=== PATIENT | male | born 1960 | race Caucasian/White ===

== ENCOUNTER → 2017-03-15 | Outpatient (CLI) | payer BC ==
[~2017-03-15] MED LIST: ALBUAER2 INH; ASMIN/60 INH; ASPEC81 PO; ASPI81TA28 PO; CRS10 PO; METO25TA3 PO; NTRGSL/4 UT; OMEP40CA PO; PLV75 PO; RANI300T2 PO; SUMA100T16 PO
--- NOTE | 2017-03-15 11:57 | DIAGNOSTIC IMAGING REPORT ---
LEFT KNEE 3 VIEWS HISTORY: M25.562 Left knee [id number] COMPARISON: None. FINDINGS: There is no fracture or dislocation. Soft tissues are unremarkable. No radiopaque foreign bodies. No knee effusion. Cartilage spaces are maintained for age. IMPRESSION: No fractures. Electronically signed by: Iam Morse M.D. 03/15/2017 11:55 AM Dictated Date/Time: 03/15/2017 11:55 AM
== END | disposition home or self-care (01) ==
LOC: C.RAD1850 11:37
PROVIDERS: ATTEND Physician Assistant
DX: M25.562 Pain in left knee (principal)

== ENCOUNTER → 2017-03-31 | Outpatient (CLI) | payer BC ==
--- NOTE | 2017-03-31 14:46 | EXERCISE STRESS ECHO ---
*NOTICE TO RECEIVING LIBERTARIAN AGENCY This information is strictly Confidential and protected under [place] law. [place] law prohibits you from making any further disclosure of this information unless further disclosure is expressly permitted by the written consent of the person to whom it pertains or is authorized by law. A general authorization for the release of medical or other information is not sufficient for this purpose. Hospital accepts no responsibility if the information is made available to any other person, INCLUDING THE PATIENT. Interpretation Summary * Name: PRIYA SIEGEL Study Date: 03/31/2017 07:06 AM BP: 149/89 mmHg * Patient Location: [facility] HR: 56 * : 1960 (M/d/yyyy) Gender: Male Height: 73 in * Age: 57 yrs Ethnicity: CA Weight: 215 lb * Ordering Physician: Georgia Sol * Referring Physician: Georgia Sol PA-C * Performed By: Moon Viera RDCS * * Reason For Study: CAD IN SQUAXIN ARTERY, HX OF CATH STENT CIRCUMFLEX * BSA: 2.2 m2 * -- Conclusions -- * 1. Negative exercise stress echo for ischemia at 90% MPHR. * 2. Negative stress ECG for ischemia. * 3. Excellent functional capacity. Exercised 10:31 min, acheiving 12.5 METS. No exercise induced chest pain. * 4. Normal resting LV size and function. LVEF 55-60%. Normal RV size and function. No significant valvular pathology. * 5. No prior studies for comparison. Procedure Details * ECHOEX, CPT #65788 Left Ventricular Findings with Stress * This was essentially a normal study. Left Ventricle * The left ventricle is grossly normal size. * There is mild concentric left ventricular hypertrophy. * Ejection Fraction = 55-60%. * The left ventricular ejection fraction increases normally with stress. The left ventricular end-systolic cavity size reduces post-stress (normal response). The left ventricular wall motion with stress is normal. Right Ventricle * The right ventricle is grossly normal size. * The right ventricular systolic function is normal as assessed by tricuspid annular plane systolic excursion (TAPSE) (normal >1.5 cm). Atria * The left atrial size is normal. * Right atrial size is normal. * No ASD detected; PFO is not assessed. Mitral Valve * The mitral valve is grossly normal. * Mitral stenosis is absent. * There is trace mitral regurgitation. Tricuspid Valve * There is trace tricuspid regurgitation. Aortic Valve * The aortic valve opens well. * The aortic valve is trileaflet. * No hemodynamically significant valvular aortic stenosis. * There is no significant aortic regurgitation. Pulmonic Valve * The pulmonary valve is inadequately visualized, but the Doppler data is adequate for interpretation. * Trace pulmonic valvular regurgitation. Great Vessels * The aortic root and proximal ascending aorta are normal sized. Pericardium * There is no pericardial effusion. Stress Parameters * Normal sinus rhythm with nonspecific intraventricular condution delay. * Stress ECG: No ST changes. No arrhythmias. * rare PVCs in recovery * The stress portion of this study was personally supervised by the undersigned interpreting physician. * Rest heart rate was '56' BPM. * Rest blood pressure was '149/89' * Maximum heart rate achieved was 146 bpm. * Maximum heart rate was 90 % of maximum age-predicted heart rate. * Maximum blood pressure was '196/71' * Total exercise time was '10:31' * Maximum exercise MET level achieved was '12.50' METS * Maximum treadmill speed was '4.20' miles per hour. * Maximum treadmill elevation was '16.00'% grade. * Exercise was terminated due to 'ACHIEVING TARGET HR' Left Ventricular Findings with Stress * The study was technically good with many images being of high quality. MMode 2D Measurements and Calculations IVSd 1.3 cm IVSs 1.8 cm LVIDd 4.5 cm LVIDs 3.2 cm LVPWd 1.2 cm LVPWs 1.9 cm IVS/LVPW 1.1 FS 27.9 % EDV(Teich) 92.1 ml ESV(Teich) 42.2 ml EF(Teich) 54.1 % EDV(cubed) 90.7 ml ESV(cubed) 34.0 ml EF(cubed) 62.5 % % IVS thick 39.8 % % LVPW thick 55.3 % LV mass(C)d 211.6 grams LV mass(C)dI 95.4 grams/m\S\2 LV mass(C)s 251.3 grams LV mass(C)sI 113.3 grams/m\S\2 SV(Teich) 49.9 ml SI(Teich) 22.5 ml/m\S\2 SV(cubed) 56.7 ml SI(cubed) 25.5 ml/m\S\2 Ao root diam 3.8 cm Ao root area 11.2 cm\S\2 LA dimension 3.5 cm LA/Ao 0.92 LVAd ap4 37.1 cm\S\2 LVLd ap4 8.9 cm EDV(MOD-sp4) 126.0 ml EDV(sp4-el) 131.3 ml LVAs ap4 23.2 cm\S\2 LVLs ap4 7.7 cm ESV(MOD-sp4) 59.5 ml ESV(sp4-el) 58.9 ml EF(MOD-sp4) 52.8 % EF(sp4-el) 55.1 % LVAd ap2 35.1 cm\S\2 LVLd ap2 9.2 cm EDV(MOD-sp2) 115.0 ml EDV(sp2-el) 113.3 ml LVAs ap2 21.8 cm\S\2 LVLs ap2 7.6 cm ESV(MOD-sp2) 54.6 ml ESV(sp2-el) 53.3 ml EF(MOD-sp2) 52.5 % EF(sp2-el) 52.9 % LVLd %diff 3.1 % EDV(MOD-bp) 119.5 ml LVLs %diff -1.95 % ESV(MOD-bp) 57.4 ml EF(MOD-bp) 51.9 % SV(MOD-sp4) 66.5 ml SI(MOD-sp4) 30.0 ml/m\S\2 SV(MOD-sp2) 60.4 ml SI(MOD-sp2) 27.2 ml/m\S\2 SV(MOD-bp) 62.1 ml SI(MOD-bp) 28.0 ml/m\S\2 SV(sp4-el) 72.4 ml SI(sp4-el) 32.6 ml/m\S\2 SV(sp2-el) 60.0 ml SI(sp2-el) 27.0 ml/m\S\2 Doppler Measurements and Calculations MV E max lori 50.6 cm/sec MV A max lori 38.8 cm/sec MV E/A 1.3 MV dec time 0.27 sec Ao V2 max 98.5 cm/sec Ao max PG 3.9 mmHg Ao max PG (full) 1.1 mmHg LV V1 max PG 2.8 mmHg LV V1 max 83.3 cm/sec TR max lori 199.5 cm/sec
== END | disposition home or self-care (01) ==
LOC: C.CPL 07:01
PROVIDERS: ATTEND Physician Assistant
DX: I25.10 Atherosclerotic heart disease of native coronary artery without angina pectoris (principal)

== ENCOUNTER → 2017-05-28 | Day surgery (SDC) | payer BC ==
--- NOTE | 2017-05-27 10:06 | History and Physical ---
"History & Physical Date of Service May 26, 2017. 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 His cardiac history dates back to November,. Around that time he had an episode of chest pressure that radiated to his jaw that will come up from sleeping. He was seen by Dr. Gray of [place] interventional cardiology and diagnostic cardiac catheterization performed at [facility] on 12/03/2015 revealed a culprit 80% focal stenosis of the mid circumflex coronary artery and an intermediate stenosis of the mid LAD graded as being 30 to 50% just after the takeoff of a moderate sized diagonal. The patient returned to the medical lab technician the next day and underwent FFR evaluation the intermediate LAD lesion with results of 0.95 and was felt that the LAD stenosis was not hemodynamically significant and he went on to have PCI, drug-eluting stent placement of mid circumflex coronary artery with implantation of a 2.75 x 14 mm Resolute TAMMY. He had interval resolution of his anginal chest discomfort. In preparation for a backpacking trip the patient underwent an exercise stress echocardiogram at [facility] on 03/31/2017. The report describes normal resting wall motion with an ejection fraction of 55 to 60%. No significant valvular heart disease was noted on the resting study. He exercised to a high work level achieving 10 minutes and 31 seconds on a Andrei protocol, 12.5 METs with no symptoms suggestive of angina. In early April, a went on to participate in the backpacking trip and hiked 10 miles a day for 2 days on hilly terrain with an appropriate level of shortness of breath and only having to stop due to leg fatigue but no chest discomfort. Last week he had been scuba diving completing 6 ties in the [employer]. He notes however that he has recently developed a chest discomfort that is high in his chest and seems to occur at rest. He does not noted with physical exertion and feels like a dull achiness that last for a few minutes and then goes away on its own. He believes this is been occurring for the last 1 to 2 months. He had 2 episodes while he was on vacation last week but did not note the symptoms with his scuba diving endeavors. His blood pressure is above goal today at 160/100. His spouse who was a nurse by training takes his blood pressure at home and typically his systolic blood pressure is well controlled in the 130 millimeter of Hg Range. He notes that he has a past history of sensitivity to medications. He had previously been prescribed lisinopril but this was discontinued due to cough. He then had been prescribed losartan and he felt that he also had a cough with that medication. He has previously been treated with both simvastatin and atorvastatin and both of these discontinued due to significant myalgias complaints. Review of Systems: A Complete Review of 10 Systems is as stated above or negative. Past Medical History: Patient Active Problem List Diagnosis Code Esophageal reflux K21.9 Migraine without aura G43.009 Past Surgical History: Procedure Laterality Date BIOPSY OF PROSTATE 2002 COLORECTAL CANCER SCREEN; NOT AT RISK 10/27/11 wnl repeat colonoscopy 10 years GINGIVOPLASTY, EACH QUADRANT Family History: Family History Problem Relation Age of Onset Cancer Father 54 prostate Hypertension Father Heart Disorder Father 52 Heart Disorder Paternal Grandfather 52 Hypertension Mother The patient 's grandfather at age 52 of a presumed myocardial infarction. Patient 's father had a myocardial infarction age 54 and subsequently of metastatic prostate cancer at age 59. Social History: Social History Social History Marital status: Spouse name: Jessica Number of children: 4 Occupational History [employer] Social History Main Topics Smoking status: Never Smoker Smokeless tobacco: Never Used Alcohol use Yes Comment: rare Drug use: No Sexual activity: Yes Partners: Female Allergies: Review of patient's allergies indicates no known allergies. Medications: Outpatient Medications Instructions: clopidogrel (PLAVIX) 75 MG Tablet metoprolol succinate XL (TOPROL XL) 25 MG TB24 Take 25 mg by mouth daily. nitroglycerin (NITROSTAT) 0.4 MG SUBL RaNITidine HCl 300 MG Tablet Take 300 mg by mouth at bedtime. IMITREX 100 MG PO TABS as needed for migraine OBJECTIVE/PHYSICAL EXAMINATION: BP 160/100 | Pulse 58 | Resp 16 | Wt 216 lbs (97.977kg) | BMI 28.5 kg/m | BSA 2.25 m General: no acute distress and stated age Eyes: conjunctiva are pink and non-injected, sclera clear Neck: normal jugular venous pulse, no hepatojugular reflux Chest: normal shape and normal respiratory effort Lungs: clear to auscultation and percussion Cardiac Exam: - regular heart sounds, no murmurs, rubs, or gallops Abdomen: abdomen soft, non-tender, no abnormal masses and no hepatosplenomegaly Musculoskeletal: no gait disturbance, no weakness Extremities: no edema and no cyanosis Neuro: grossly normal exam Psych: appropriate affect and insight. Data: An EKG performed today 05/26/2017 reviewed independently by the undersigned: Sinus bradycardia 52 beats per minute voltage criteria for left ventricular hypertrophy, an age undetermined septal infarction cannot be excluded. Compared to the post coronary stent tracing performed on 12/04/2015 at [facility], there are persistent inferior T-wave inversions in the leads III and AVF. The age undetermined septal infarction is new, with new poor R-wave progression in lead V2. 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 Range 05/26/2017 10:25 WBC Latest Ref Range: 4.00 - 10.80 K/uL 6.90 RBC Latest Ref Range: 4.50 - 5.25 M/uL 4.90 HGB Latest Ref Range: 14.0 - 16.8 g/dL 15.0 HCT Latest Ref Range: 40.0 - 48.4 % 43.9 PLATELET COUNT Latest Ref Range: 140 - 400 K/uL 219 PT/INR-PT Latest Ref Range: 11.5 - 14.6 seconds 13.3 PT/INR-INR Latest Ref Range: 0.82 - 1.12 0.99 APTT-PATIENT Latest Ref Range: 21 - 38 seconds 25 BUN Latest Ref Range: 6 - 20 mg/dL 18 CREATININE Latest Ref Range: 0.6 - 1.2 mg/dL 1.3 (H) E GLOM FILT RATE Latest Ref Range: >60 >60.0 SODIUM Latest Ref Range: 135 - 146 mmol/L 142 POTASSIUM Latest Ref Range: 3.5 - 5.1 mmol/L 4.3 CHLORIDE Latest Ref Range: 98 - 107 mmol/L 104 CO2 Latest Ref Range: 22 - 32 mmol/L 25 GLUCOSE Latest Ref Range: 70 - 120 mg/dL 102 CALCIUM Latest Ref Range: 8.4 - 10.2 mg/dL 9.5 ANION GAP Latest Ref Range: 7 - 15 mmol/L 13 ALBUMIN Latest Ref Range: 3.8 - 5.0 g/dL 4.4 ALKALINE PHOSPHATASE Latest Ref Range: 0 - 153 U/L 60 ALT Latest Ref Range: 10 - 50 U/L 21 AST Latest Ref Range: 10 - 50 U/L 20 BILIRUBIN Latest Ref Range: 0 - 1.2 mg/dL 0.6 PROTEIN Latest Ref Range: 6.0 - 8.3 g/dL 7.1 AP/PA Lateral Chest X-ray 05/26/17 FINDINGS Cardiomediastinal silhouette and pulmonary vasculature are within normal limits. There is no focal airspace consolidation, pleural effusion or pneumothorax. Multilevel degenerative changes of the thoracic spine. IMPRESSION No acute cardiopulmonary process identified on this chest radiograph. IMPRESSION: 57 year old year old male 1. Unstable Angina 2. Abnormal EKG 3. Hypertension, BP above goal 4. Dyslipidemia, with past statin intolerance RECOMMENDATIONS/PLAN: The patient expresses significant concern about the chest discomfort. He states that it is not definitely reminiscent of the discomfort that prompted his initial cardiac catheterization in November,, but is difficult to determine an alternative cause. 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 He had a stress test in March, prior to proceeding with a significant exertional and ever of the backpacking trip with no symptoms or objective evidence of ischemia induced, however the symptoms have, but since then. He has very subtle change in his EKG , but is difficult to tell if this is clinically relevant. His blood pressure is above goal today, however he is in a new place having not been to our office before. We discussed potential options. Do not think repeating a stress test will be of much value at the present time as even if it was negative, I would still be concerned about his discomfort especially because of how much she exerts himself performing activities such as splitting wood, hiking, and performing scuba diving especially given his known circumflex stent and intermediate LAD lesion noted on last cardiac catheterization. At this time, I recommend that we proceed with coronary angiography for definitive diagnosis with repeat FFR measurement of any lesions if necessary. The patient would like to have this performed locally at [facility], have discussed the case with Dr. Hull of [facility] interventional cardiology by telephone and will schedule the procedure with Dr Hull later this week on . Pre procedure labs and CXR will be completed today. His blood pressure is above goal today, but he states that is otherwise usually better controlled and he notes difficulty with tolerating lisinopril on losartan in the past. Future considerations include perhaps adding low-dose amlodipine for blood pressure control and his anti anginal medication. He has been intolerant of statin therapy with trials of simvastatin and atorvastatin in the past. He notes that his total cholesterol typically runs in the 220 to 230 milligram/deciliter range as obvious late above goal for someone with known coronary heart disease. I have counseled him to start rosuvastatin 5 milligrams by mouth starting with 1 tablet once per week and then increasing to 3 times per week on Wednesdays and Fridays and then daily as tolerated. He has been on Imitrex in the past. This will be revisited future appointment, as this is not an ideal headache medication for patient with hypertension and coronary artery disease. Pre cardiac catheterization laboratory findings were within normal limits with the exception of a mildly elevated creatinine of 1.3 milligrams/deciliter, with normal calculated GFR. The patient has been counseled to hydrate with oral fluids leading up to his cardiac catheterization. Rafa Hoover DO [facility], [address] [address] This chart was completed in part utilizing [employer] Speech Voice Recognition Software. Grammatical errors, random word insertions, prounoun errors, and incomplete sentences are an occasional consequence of this system due to software limitations, ambient noise, and hardware issues. Any formal questions or concerns about the content, text, or information contained within the body of this dictation should be directly addressed to the provider for clarification."
[~2017-05-28] VITALS: Ht 185.4 cm; Wt 98.0 kg
[~2017-05-28] MED LIST changes: +ADENOSINE IV SOLN 3 MG/ML 20 ML VIAL ONE; +FENTANYL CITRATE INJ 50 MCG/1 ML 2 ML VIAL ONE; +HEPARIN SOD (PORCINE) 1000 UNIT/ML 10 ML VIAL ONE; +MIDAZOLAM HCL 1 MG/ML 2ML VIAL ONE; +NITROGLYCERIN/D5W 100MCG/ML 20ML SYR ONE; +NiCARDipine HCL INJ 2.5 MG/ML 10 ML AMP ONE
[2017-05-28 09:09] VITALS: BP 160/81; PULSE 60; TEMP 36.5; O2SAT 98; Ht 185.4 cm; Wt 98.0 kg
--- NOTE | 2017-05-28 09:57 | History & Physical Bridge Note ---
H&P Re-Evaluation Bridge Note: I have examined the patient, reviewed the History & Physical and in the interval since the performance of the History & Physical I have noted the following changes of clinical significance: No changes noted
--- NOTE | 2017-05-28 09:57 | Procedure Note ---
Pre-Mod Sedation Assessment General Date of Moderate Sedation: May 28, 2017. Vital Signs: Vital Signs Past 12 Hours Date Time Temp Pulse Resp B/P (MAP) Pulse Ox O2 Delivery O2 Flow Rate FiO2 05/28/17 09:09 36.5 60 18 160/81 98 Room Air Review Cardiovascular: regular rate, rhythm, no edema Abdomen: normal bowel sounds, non tender Lungs: chest non-tender, lungs clear Pre-Sedation Airway Assessment Oral Cavity: WNL Able to Visualize Vocal Cords: No Short Thick Neck: No Hx of Sleep Apnea: No Smoking Status: Never Smoker Mallampati Classification: Class III ASA Classification: Class III Procedure Planning Contraindications-for Mod Sed: None Yes Notes The planned sedation has been discussed with the patient and consent obtained. I have identified the patient, determined the appropriateness of sedation and have assessed the patient immediately prior to the procedure. All medicine(s) and interventions are by my order.
--- NOTE | 2017-05-28 10:44 | Procedure Note ---
Post-Mod Sedation Assessment General Date of Moderate Sedation May 28, 2017. Vital Signs: Vital Signs Past 12 Hours Date Time Temp Pulse Resp B/P (MAP) Pulse Ox O2 Delivery O2 Flow Rate FiO2 05/28/17 09:09 36.5 60 18 160/81 98 Room Air Review - Discharge Criteria Vital Signs Stable: Yes Alert/Oriented/Conversant: Yes Returned to Baseline Mental St: Yes Nausea Absent/Minimal: Yes Pain/Discomfort/Absent/Minimal: Yes Normal/Baseline Respirations: Yes Active Bleeding?: No Pt Received D/C Instructions: N/A Prescriptions Given: None Specific Proced. D/C Criteria Distal Pulses Present (Cardiac: Yes Groin site assessed-Card Cath: N/A Voided Prior To Discharge: N/A Discharged Patients Adult Escort/Transportation: Yes
--- NOTE | 2017-05-28 11:00 | Cardiac Catheterization ---
Procedure Note Procedure Date May 28, 2017. 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 History of CAD post LCx stenting 11/2015 Access: 6Fr Slender Right Radial Artery Catheters: [place]; EBU 3.5 guide Findings: LM - Angiographically normal LAD - Moderate caliber vessel that wraps around apex and gives off 1 small diagonal. Mildly calcified proximally with luminal irregularities. 50-60% focal, calcified mid segment stenosis just after diagonal. Minimal distal vessel disease. Ramus - Moderate caliber, angiographically normal Circumflex - Large vessel, mild proximal disease, patent mid segment stent without significant restenosis, 30-40% distal segment stenosis right after prior stent; Moderate caliber OM2 without significant disease. RCA - Dominant, large caliber vessel with luminal irregularities. Gives off R- PDA and 2 PLBs without significant disease. LVEDP - 8 FFR mid LAD: EBU 3.5 guide, straight FFR wire. iFR 0.93, FFR 0.83 Arterial Closure: TR Band Summary: 1. Moderate non-obstructive coronary artery disease - 50-60% non-flow limiting mid LAD disease (FFR 0.83) - Widely patent circumflex stent 2. Normal intracardiac filling pressure Recommendations: Mid LAD stenosis not cause of patients new rest pain. Continued evaluation for non-cardiac chest pain. Continued ASCVD risk factor modification. Reasonable to continue DAPT Follow-up with Dr. Hoover Hemodynamics Rest Ao: 133/82/100 Final Ao: 139/75/100 LV: 124/8 Recommendations Medical therapy and/or Counseling Specimens None Radiation Exposure (mGy) 2059 Contrast (mls) 95 Fluids (cc crystalloids) 96 Drains None Anesthesia Moderate Procedural Complication(s) None Disposition Hand Kiss Setter Holding/Recovery ACC Data Cardiac Status Clinical evaluation leading to the procedure CAD Presntation: Unstable angina Anginal Classification: CCS III Heart Failure: No, NYHA Class: CCS I Cardiogenic Shock w/in 24Hrs: No Cardiac Arrest w/in 24Hrs: No Imaging studies past 6 months: Yes Stress studies past 6 months: Yes Stress Echocardiogram: Yes - Negative Coronary Anatomy Dominant: Right LAD (% Stenosis): Mid (50-60) Circumflex (% Stenosis): Distal (30-40) RCA (% Stenosis): Normal Diagnostic Physician's Name: Richy Hull MD Status: Elective Closure Device Percutaneous Entry Location: Radial Closure Device: Radial Band Recommendations: Medical therapy and/or Counseling Intraprocedure Events Significant Dissection: No Perforation: No
--- NOTE | 2017-05-28 11:02 | Discharge Instructions ---
Discharge Instructions Procedure Procedure Date: May 28, 2017. Reason for Visit: Chest Pain, Abnormal Ekg Dr Hull To Do. Discharge Discharge Date: May 28, 2017. Discharge Diagnosis: Non-obstructive coronary artery disease Last Recorded Wt (Kilograms): 98 Anesthesia Post Anesthesia Instructions: If you have had IV Sedation: * Do not drive today. * Resume driving when [employer] permits. * Do not make important decisions or sign legal documents today. * Call surgeon for: 1. Temperature elevations greater than 101 degrees F. 2. Uncontrollable pain. 3. Excessive bleeding. 4. Persistent nausea and vomiting. 5. Medication intolerance (nausea, vomiting or rash). * For nausea and vomiting use only clear liquids such as: tea, soda, bouillon until nausea subsides, then gradually increase diet as tolerated. * If you have any concerns or questions, call your surgeon's office. If physician is unavailable and it is an emergency, call 911 or go to the nearest emergency room. Instructions Activity Recommendations: limitations as noted below Recommended Home Diet: resume previous diet Allergies: Coded Allergies: LORENZO Inhibitors (Unverified Allergy, Unknown, HIVES, 12/04/15) Follow Up Additional Instructions: ACTIVITY RECOMMENDATIONS: It is common to feel weak and fatigue for a few days. * Do not drive or operate any motorized equipment for the next 2 days. * Limit stair usage (2 or 3 trips a day only) for the next 2 days. * Do not lift anything heavier than 10 pounds for the next three days. * Do not engage in vigorous exercise or any sports for the next five days. * You may shower the day after your procedure, but do not immerse the area for three days. Cleanse the site gently with soap and water. SPECIAL CARE INSTRUCTIONS: * You may replace the pressure dressing or band-aid the morning after the procedure. * After your procedure, it is normal to have a small bruise or small lump at the site. Examine your site daily for any change in the bruise or lump, redness, swelling, drainage or numbness. Notify your doctor if any change. BLEEDING: * If there is a small amount of bleeding at the site, lie down and apply firm pressure with a clean cloth for ten minutes. When the bleeding stops, lie quietly keeping the procedure limb straight for six hours. Notify your doctor as soon as possible. * If the bleeding does not stop after ten minutes or if there is a large amount of bleeding or spurting, call 911 immediately. Continue to lie down and hold firm pressure until help arrives. SKIN IRRITATION: * You may experience some redness and/or swelling in the area where radiation was administered. If any skin irritation occurs, please contact your family physician. FOLLOW UP VISIT: Keep any scheduled doctor appointments. Follow-up with: As scheduled with Dr. Sneha Ramos Recommendations: Call your doctor if: * Temperature above 101 degrees * Pain not relieved by pain medicine ordered * There is increased drainage or redness from any incision * You have any unanswered questions or concerns. Your Doctors Instructions noted above were prepared by provider Jose Hull. Patient Signature Section: Patient Instructions Signature Page Chan Bejarano Patient (or Guardian) Signature/Date: I have read and understand the instructions given to me by my caregivers. Caregiver/RN/Doctor Signature/Date: The above-named patient and/or guardian has received patient instructions on this date. + Original Patient Signature Page (only) stays with chart. Please make copy for patient.
[2017-05-28 13:00] VITALS: BP 124/80; PULSE 60; O2SAT 95
== END | disposition home or self-care (01) ==
LOC: C.CATH 08:41
PROVIDERS: ATTEND Internal Medicine Interventional Cardiology
DX: I25.10 Atherosclerotic heart disease of native coronary artery without angina pectoris (principal); I10 Essential (primary) hypertension; E78.5 Hyperlipidemia, unspecified; K21.9 Gastro-esophageal reflux disease without esophagitis; Z82.49 Family history of ischemic heart disease and other diseases of the circulatory system; Z80.42 Family history of malignant neoplasm of prostate